=== PATIENT | female | born 1980 | race African-American/Black ===

== ENCOUNTER → 2016-05-04 | Outpatient (CLI) | payer OTHER ==
[~2016-05-04] MED LIST: ALBU1AER INH; ALBU6.7H INH; ALBUAER3 INH; CIPR0.3S LEFT EAR; DUONI NEB; HYDR-2768 PO; HYDR25TA5 PO; LISI-366 PO; LISI40TA PO; LORA24TA PO; OMEP20TA PO; RANI150 PO; SERT-132 PO; TYLE325T PO
[2016-05-04 11:09] LABS: ALKALINE PHOSPHATASE 90 U/L (45-117); HDL CHOLESTEROL 57.1 MG/DL (40.0-60.0); TOTAL BILIRUBIN ADULT 0.3 MG/DL (0.2-1.0)
[2016-05-04 11:11] LABS: ALT (GPT) 25 U/L (10-53); ANION GAP 8 MEQ/L (5-15); AST (GOT) 22 U/L (15-37); BLOOD UREA NITROGEN 11 MG/DL (7-18); CHLORIDE 104 MEQ/L (98-107); GLOMERULAR FILTRATION RATE 115 ML/MIN (>89); GLUCOSE,FASTING 104 MG/DL (74-99); LDL CHOLESTEROL 70 MG/DL (0-99); SODIUM (NA) 141 MEQ/L (136-145)
[2016-05-04 11:15] LABS: POTASSIUM 4.7 MEQ/L (3.5-5.1)
[2016-05-04 14:02] LABS: HEMOGLOBIN A1a 1.3 %; HEMOGLOBIN Ao 83.1 %; HEMOGLOBIN P3 3.8 %
== END ==
LOC: CLAB 10:16
PROVIDERS: ATTEND Family Medicine
DX: Z68.43 Body mass index [BMI] 50.0-59.9, adult (principal)
CPT/HCPCS: 36415; 80053; 80061; 83036

== ENCOUNTER 2016-08-04 22:17 | Emergency (ER) | payer OTHER ==
[~2016-08-04 22:17] MED LIST changes: -ALBUAER3 INH; -HYDR25TA5 PO; -LISI40TA PO; -LORA24TA PO; -SERT-132 PO; -TYLE325T PO
[2016-08-04 22:19] VITALS: BP 168/94; PULSE 88; RESP 16; TEMP 98.7; O2SAT 99
--- NOTE | 2016-08-04 22:54 | PD ---
Physical Exam Time Seen by Provider: 22:53 Narrative 36yo F c/o L sided chest pain, GAGE, and dizziness for 1 week. Reports SOB. Patient seen in triage. VS reviewed. Awaiting bed placement. Data Data Last Documented VS Vital Signs Date Time Temp Pulse Resp B/P Pulse Ox O2 Delivery O2 Flow Rate FiO2 08/04/16 22:19 98.7 88 16 168/94 99 Room Air [facility] Supervised Visit with CIERRA: Clair Sofia Aug 04, 2016 22:54
[2016-08-05] MEDS ORDERED: SERT-132 PO (00:23)
[2016-08-05] MEDS ORDERED: ALBUAER3 INH (00:23)
[2016-08-05] MEDS ORDERED: LORA24TA PO (00:23)
[2016-08-05] MEDS ORDERED: ALBU6.7H INH (00:23)
[2016-08-05] MEDS ORDERED: HYDR25TA5 PO (00:23)
[2016-08-05] MEDS ORDERED: KETOROLAC TROMETHAMINE 30 MG/ML (IVP) VIAL IV PUSH ONE (00:30)
[2016-08-05 00:48] LABS: AUTOMATED NEUTROPHIL # 4.6 TH/MM3 (1.8-7.7); BASOPHIL # 0.1 TH/MM3 (0-0.2); BASOPHIL % 1.5 % (0.0-2.0); EOSINOPHIL # 0.1 TH/MM3 (0-0.4); EOSINOPHIL % 1.2 % (0.0-4.0); HEMATOCRIT 37.8 % (35.0-46.0); HEMO FLAGS DIFF FINAL; LYMPH % 36.8 % (9.0-44.0); LYMPHOCYTE # 3.2 TH/MM3 (1.0-4.8); MEAN CELL VOLUME 82.2 FL (80.0-100.0); MEAN CORPUSCULAR HEMOGLOBIN 27.2 PG (27.0-34.0); MEAN CORPUSCULAR HGB CONC 33.1 % (32.0-36.0); MONO % 6.5 % (0.0-8.0); PLATELET COUNT 429 TH/MM3 (150-450); RED CELL DISTRIBUTION WIDTH 16.2 % (11.6-17.2); WHITE BLOOD COUNT 8.6 TH/MM3 (4.0-11.0)
[2016-08-05 01:00] LABS: APTT (PATIENT) 26.9 SEC (24.3-30.1); PROTHROMBIN TIME - PATIENT 11.2 SEC (9.8-11.6)
--- NOTE | 2016-08-05 01:06 | PD ---
HPI Chief Complaint: Chest Pain Time Seen by Provider: 00:11 Travel History International Travel<30 days: No Contact w/Intl Traveler<30days: No Traveled to known affect area: No History of Present Illness HPI 36yo F with PMH of HTN presents to the ED with c/o headache, chest pain for 1 week. Pt states headache is frontal. Denies any fever, neck pain, focal weakness or numbness, sob, n/v, abdominal pain. Chest pain is left sided, intermittent. Pt states she has been very stressed lately. PFSH Past Medical History Asthma: Yes Blood Disorders: No Heart Rhythm Problems: No Cancer: No Cardiovascular Problems: Yes High Cholesterol: No Chest Pain: Yes Congestive Heart Failure: No COPD: No Diabetes: Yes (CONTROLLED) Patient Takes Glucophage: No Diminished Hearing: No Endocrine: Yes Genitourinary: No Hypertension: Yes Musculoskeletal: No Neurologic: No Psychiatric: No Reproductive: No Respiratory: Yes Migraines: Yes Sleep Apnea: Yes Ulcer: Yes ?: Not LMP: 07/30/16 : 0 Para: 0 Miscarriage: 0 : 0 Past Surgical History Ear Surgery: Yes (JOHNNY EAR TUBES) Gynecologic Surgery: Yes (BREAST REDUCTION) Tympanostomy Tube: Yes Other Surgery: Yes (Breast reduction) Social History Alcohol Use: No Tobacco Use: No Substance Use: No Allergies-Medications (Allergen,Severity, Reaction): Coded Allergies: Cultivated Oat Pollen (Verified Allergy, Unknown, 08/04/16) Dust (Verified Allergy, Unknown, 08/04/16) Reported Meds & Prescriptions Reported Meds & Active Scripts Active Omeprazole 20 Mg Tab 20 Mg PO DAILY Ciprodex Otic Drops (Ciprofloxacin-Dexamethasone Otic Drops) 0.3-0.1% Susp 4 Drop LEFT EAR BID Reported Proair Hfa 8.5 GM Inh (Albuterol Sulfate) 90 Mcg/Act Aer 1 Puff INH Q4H PRN 108 mcg/actuation Proventil Hfa 6.7 GM Inh (Albuterol Sulfate) 90 Mcg/Act Aer 1 Puff INH Q4H PRN Loratadine-D 24 HR (Loratadine-Pseudoephedrine 24 HR) 10-240 Mg Tab 1 Tab PO DAILY Sertraline (Sertraline HCl) 50 Mg Tab 50 Mg PO DAILY Hydrochlorothiazide 25 Mg Tab 25 Mg PO DAILY Review of Systems Except as stated in HPI: all other systems reviewed are Neg Physical Exam Narrative GENERAL: 36yo F not in distress. SKIN: Focused skin assessment warm/dry. HEAD: Atraumatic. Normocephalic. +TTP bilateral frontal sinus. EYES: Pupils equal and round. No scleral icterus. No injection or drainage. ENT: No nasal bleeding or discharge. Mucous membranes pink and moist. NECK: No nuchal rigidity. CARDIOVASCULAR: Regular rate and rhythm. No murmur appreciated. RESPIRATORY: No accessory muscle use. Clear to auscultation. Breath sounds equal bilaterally. GASTROINTESTINAL: Abdomen soft, non-tender, nondistended. No rebound tenderness or guarding. MUSCULOSKELETAL: No obvious deformities. No clubbing. No cyanosis. No edema. NEUROLOGICAL: Awake and alert. No obvious cranial nerve deficits. Motor grossly within normal limits. Normal speech. PSYCHIATRIC: Appropriate mood and affect; insight and judgment normal. Data Data Last Documented VS Vital Signs Date Time Temp Pulse Resp B/P Pulse Ox O2 Delivery O2 Flow Rate FiO2 08/05/16 02:30 84 14 162/89 98 Room Air 08/04/16 22:19 98.7 Orders Electrocardiogram (08/05/16 00:29) Basic Metabolic Panel (Bmp) (08/05/16 00:29) Ckmb (Isoenzyme) Profile (08/05/16 00:29) Complete Blood Count With Diff (08/05/16 00:29) Magnesium (Mg) (08/05/16 00:29) Prothrombin Time / Inr (Pt) (08/05/16 00:29) Act Partial Throm Time (Ptt) (08/05/16 00:29) Troponin I (08/05/16 00:29) Chest, Single Ap (08/05/16 00:29) Ecg Monitoring (08/05/16 00:29) Iv Access Insert/Monitor (08/05/16 00:29) Ketorolac Inj (Toradol Inj) (08/05/16 00:30) CKMB (08/05/16 00:39) CKMB% (08/05/16 00:39) Labs Laboratory Tests Test 08/05/16 00:39 White Blood Count 8.6 TH/MM3 Red Blood Count 4.60 MIL/MM3 Hemoglobin 12.5 GM/DL Hematocrit 37.8 % Mean Corpuscular Volume 82.2 FL Mean Corpuscular Hemoglobin 27.2 PG Mean Corpuscular Hemoglobin 33.1 % Concent Red Cell Distribution Width 16.2 % Platelet Count 429 TH/MM3 Mean Platelet Volume 7.8 FL Neutrophils (%) (Auto) 54.0 % Lymphocytes (%) (Auto) 36.8 % Monocytes (%) (Auto) 6.5 % Eosinophils (%) (Auto) 1.2 % Basophils (%) (Auto) 1.5 % Neutrophils # (Auto) 4.6 TH/MM3 Lymphocytes # (Auto) 3.2 TH/MM3 Monocytes # (Auto) 0.6 TH/MM3 Eosinophils # (Auto) 0.1 TH/MM3 Basophils # (Auto) 0.1 TH/MM3 CBC Comment DIFF FINAL Differential Comment Prothrombin Time 11.2 SEC Prothromb Time International 1.0 RATIO Ratio Activated Partial 26.9 SEC Thromboplast Time Sodium Level 141 MEQ/L Potassium Level 3.8 MEQ/L Chloride Level 103 MEQ/L Carbon Dioxide Level 28.0 MEQ/L Anion Gap 10 MEQ/L Blood Urea Nitrogen 11 MG/DL Creatinine 0.75 MG/DL Estimat Glomerular Filtration 107 ML/MIN Rate Random Glucose 89 MG/DL Calcium Level 8.3 MG/DL Magnesium Level 2.6 MG/DL Total Creatine Kinase 138 U/L Creatine Kinase MB LESS THAN 0.5 NG/ML Troponin I LESS THAN 0.02 NG/ML MDM Medical Decision Making Medical Screen Exam Complete: Yes Emergency Medical Condition: Yes Interpretation(s) EKG: NSR 73bpm. TWI aVF. Laboratory Tests Test 08/05/16 00:39 White Blood Count 8.6 TH/MM3 (4.0-11.0) Red Blood Count 4.60 MIL/MM3 (4.00-5.30) Hemoglobin 12.5 GM/DL (11.6-15.3) Hematocrit 37.8 % (35.0-46.0) Mean Corpuscular Volume 82.2 FL (80.0-100.0) Mean Corpuscular Hemoglobin 27.2 PG (27.0-34.0) Mean Corpuscular Hemoglobin 33.1 % Concent (32.0-36.0) Red Cell Distribution Width 16.2 % (11.6-17.2) Platelet Count 429 TH/MM3 (150-450) Mean Platelet Volume 7.8 FL (7.0-11.0) Neutrophils (%) (Auto) 54.0 % (16.0-70.0) Lymphocytes (%) (Auto) 36.8 % (9.0-44.0) Monocytes (%) (Auto) 6.5 % (0.0-8.0) Eosinophils (%) (Auto) 1.2 % (0.0-4.0) Basophils (%) (Auto) 1.5 % (0.0-2.0) Neutrophils # (Auto) 4.6 TH/MM3 (1.8-7.7) Lymphocytes # (Auto) 3.2 TH/MM3 (1.0-4.8) Monocytes # (Auto) 0.6 TH/MM3 (0-0.9) Eosinophils # (Auto) 0.1 TH/MM3 (0-0.4) Basophils # (Auto) 0.1 TH/MM3 (0-0.2) CBC Comment DIFF FINAL Differential Comment Prothrombin Time 11.2 SEC (9.8-11.6) Prothromb Time International 1.0 RATIO Ratio Activated Partial 26.9 SEC Thromboplast Time (24.3-30.1) Sodium Level 141 MEQ/L (136-145) Potassium Level 3.8 MEQ/L (3.5-5.1) Chloride Level 103 MEQ/L (98-107) Carbon Dioxide Level 28.0 MEQ/L (21.0-32.0) Anion Gap 10 MEQ/L (5-15) Blood Urea Nitrogen 11 MG/DL (7-18) Creatinine 0.75 MG/DL (0.50-1.00) Estimat Glomerular Filtration 107 ML/MIN Rate (>89) Random Glucose 89 MG/DL (74-106) Calcium Level 8.3 MG/DL (8.5-10.1) Magnesium Level 2.6 MG/DL (1.5-2.5) Total Creatine Kinase 138 U/L (26-192) Creatine Kinase MB LESS THAN 0.5 NG/ML (0.5-3.6) Troponin I LESS THAN 0.02 NG/ML (0.02-0.05) Last Impressions Chest X-Ray 08/05/16 0029 Signed Impressions: Service Date/Time: July 01:02 - CONCLUSION: Normal examination. Hugh Duong MD Differential Diagnosis Anxiety vs. atypical chest pain vs. sinus headache vs. migraine headache Narrative Course 36yo F with atypical chest pain and sinus headache. No red flags. No neurologic deficits on exam. Pt is very comfortable appearing, smiling and not in distress. Labs reviewed, no leukocytosis. Troponin negative. CXR negative. Pt given toradol 30mg IV and reevaluated at bedside. States headache and chest pain has resolved. Do not think chest pain is cardiac. Return precautions given. Diagnosis Primary Impression: Atypical chest pain Patient Instructions: General Instructions Departure Forms: Tests/Procedures Additional Instructions: Please follow up with your PMD in 1-2 days. Return to the ED if symptoms worsen. Med/Other Pt SpecificInfo: Prescription(s) given Scripts Acetaminophen (Tylenol)325 Mg [id number] Mg PO Q6H PRN (PAIN SCALE 1 TO 4) #20 TAB Ref 0 Prov:Kusum Tsai DO 08/05/16 Disposition: 01 DISCHARGE HOME Condition: Stable Kusum Tsai DO Aug 05, 2016 01:06
[2016-08-05 01:11] LABS: ANION GAP 10 MEQ/L (5-15); BLOOD UREA NITROGEN 11 MG/DL (7-18); CHLORIDE 103 MEQ/L (98-107); GLOMERULAR FILTRATION RATE 107 ML/MIN (>89); MAGNESIUM 2.6 MG/DL (1.5-2.5); POTASSIUM 3.8 MEQ/L (3.5-5.1); SODIUM (NA) 141 MEQ/L (136-145)
[2016-08-05 01:15] LABS: CREATINE KINASE 138 U/L (26-192)
[2016-08-05 01:27] LABS: CKMB LESS THAN 0.5 NG/ML (0.5-3.6)
--- NOTE | 2016-08-05 01:48 | RADRPT ---
EXAM DATE/TIME: 08/05/2016 01:02 [facility] COMPARISON: CHEST SINGLE AP, December 05, 2015, 20:16. INDICATIONS : Shortness of breath. MEDICAL HISTORY : Diabetes mellitus type II. Asthma SURGICAL HISTORY : None. ENCOUNTER: Initial ACUITY: 1 day PAIN SCORE: 0/10 LOCATION: Bilateral chest FINDINGS: A single view of the chest demonstrates the lungs to be symmetrically aerated without evidence of mas s, infiltrate or effusion. The cardiomediastinal contours are unremarkable. Osseous structures are intact. CONCLUSION: Normal examination. Hugh Duong MD on August 05, 2016 at 1:47 Board Certified Radiologist. This report was verified electronically.
[2016-08-05 02:30] VITALS: BP 162/89; PULSE 84; RESP 14; O2SAT 98
[2016-08-05] MEDS ORDERED: TYLE325T PO (02:45)
--- NOTE | 2016-08-05 13:57 | EKG ---
Date Performed: 08/05/2016 Time Performed: 00:54:13 PTAGE: 36 years EKG: Sinus rhythm INDETERMINATE AXIS POSSIBLE RIGHT VENTRICULAR CONDUCTION DELAY NONSPECIFIC ST ELEVATION BORDERLINE E CG PREVIOUS TRACING : 12/05/2015 20.00 Since previous tracing, no significant change noted DOCTOR: Rashaad Hook Interpretating Date/Time 08/05/2016 13:55:47
[2016-08-16] MEDS ORDERED: SERT-132 PO (13:23)
[2016-08-16] MEDS ORDERED: HYDR25TA5 PO (13:23)
[2016-08-16] MEDS ORDERED: LORA24TA PO (13:23)
[2016-08-26] MEDS ORDERED: LISI40TA PO (10:22)
== END 2016-08-05 03:05 | disposition home or self-care (01) ==
LOC: NEPC 22:17
DX: R07.89 Other chest pain (principal); R51 Headache; I10 Essential (primary) hypertension; J45.909 Unspecified asthma, uncomplicated; E11.9 Type 2 diabetes mellitus without complications; R94.31 Abnormal electrocardiogram [ECG] [EKG]
CPT/HCPCS: 71010; 80048; 82550; 82552; 83735; 84484; 85025; 85610; 85730; 93005; 96374; 99285; J1885

== ENCOUNTER 2016-09-06 14:19 | Emergency (ER) | payer OTHER ==
[~2016-09-06] VITALS: Ht 154.9 cm; Wt 97.0 kg
[~2016-09-06 14:19] MED LIST changes: -ALBU1AER INH; +ALBUAER3 INH; -DUONI NEB; -HYDR-2768 PO; +HYDR25TA5 PO; -LISI-366 PO; +LISI40TA PO; +LORA24TA PO; -RANI150 PO; +SERT-132 PO; +TYLE325T PO
[2016-09-06 14:22] VITALS: BP 179/95; PULSE 82; RESP 20; TEMP 98.1; O2SAT 100
--- NOTE | 2016-09-06 14:32 | PD ---
Physical Exam Time Seen by Provider: 14:31 Narrative 36 y/o female here with R foot pain after a bed fell on her foot on 07/28. Pain persists. Vital signs reviewed. Seen at triage desk. Awaiting bed placement. Data Data Last Documented VS Vital Signs Date Time Temp Pulse Resp B/P Pulse Ox O2 Delivery O2 Flow Rate FiO2 09/06/16 14:22 98.1 82 20 179/95 100 Room Air [facility] Medical Record Reviewed: Yes Supervised Visit with CIERRA: Richar Cintron Sep 06, 2016 14:31
--- NOTE | 2016-09-06 15:01 | RADRPT ---
EXAM DATE/TIME: 09/06/2016 14:52 [facility] COMPARISON: No previous studies available for comparison. INDICATIONS : Right foot pain. Patients roommate dropped a piece of furniture on top of foot one week ago. MEDICAL HISTORY : None. SURGICAL HISTORY : None. ENCOUNTER: Initial ACUITY: 1 week PAIN SCORE: 9/10 LOCATION: Right foot. FINDINGS: No definite fractures, or dislocations are identified. No definite lytic or sclerotic lesion is seen . CONCLUSION: No definite fracture is seen for technique. K. Vaibhav Enrique MD on September 06, 2016 at 14:57 Board Certified Radiologist. This report was verified electronically.
--- NOTE | 2016-09-06 17:07 | PD ---
HPI Chief Complaint: Injury Time Seen by Provider: 16:40 Travel History International Travel<30 days: No Contact w/Intl Traveler<30days: No Traveled to known affect area: No History of Present Illness HPI 36-year-old female presents emergency department for evaluation of right foot pain. Patient reports while moving 2 days ago a large metal bed fell onto her right foot. She has had pain and difficulty weightbearing since the injury. Patient denies numbness or tingling in the extremity. No other injury. No alleviating factors. PFSH Past Medical History Asthma: Yes Blood Disorders: No Heart Rhythm Problems: No Cancer: No Cardiovascular Problems: Yes (htn) High Cholesterol: No Chest Pain: Yes Congestive Heart Failure: No COPD: No Diabetes: Yes (CONTROLLED) Patient Takes Glucophage: No Diminished Hearing: No Endocrine: Yes Genitourinary: No Hypertension: Yes Musculoskeletal: No Neurologic: No Psychiatric: No Reproductive: No Respiratory: Yes (asthma) Immunizations Current: Yes Migraines: Yes Sleep Apnea: Yes Ulcer: Yes ?: Not LMP: 08/28/16 : 0 Para: 0 Miscarriage: 0 : 0 Past Surgical History Ear Surgery: Yes (JOHNNY EAR TUBES) Gynecologic Surgery: Yes (BREAST REDUCTION) Thoracic Surgery: Yes (BREAST REDUCTION) Tympanostomy Tube: Yes Other Surgery: Yes (Breast reduction) Social History Alcohol Use: No Tobacco Use: No Substance Use: No Allergies-Medications (Allergen,Severity, Reaction): Coded Allergies: Cultivated Oat Pollen (Verified Allergy, Unknown, 09/06/16) Dust (Verified Allergy, Unknown, 09/06/16) Reported Meds & Prescriptions Reported Meds & Active Scripts Active Lisinopril 40 Mg Tab 40 Mg PO DAILY Loratadine-D 24 HR (Loratadine-Pseudoephedrine 24 HR) 10-240 Mg Tab 1 Tab PO DAILY Sertraline (Sertraline HCl) 50 Mg Tab 50 Mg PO DAILY Hydrochlorothiazide 25 Mg Tab 25 Mg PO DAILY Tylenol (Acetaminophen) 325 Mg Tab 650 Mg PO Q6H PRN Omeprazole 20 Mg Tab 20 Mg PO DAILY Ciprodex Otic Drops (Ciprofloxacin-Dexamethasone Otic Drops) 0.3-0.1% Susp 4 Drop LEFT EAR BID Reported Proair Hfa 8.5 GM Inh (Albuterol Sulfate) 90 Mcg/Act Aer 1 Puff INH Q4H PRN 108 mcg/actuation Proventil Hfa 6.7 GM Inh (Albuterol Sulfate) 90 Mcg/Act Aer 1 Puff INH Q4H PRN Review of Systems Except as stated in HPI: all other systems reviewed are Neg Physical Exam Narrative GENERAL: Well-nourished, well-developed patient. SKIN: Focused skin assessment warm/dry. HEAD: Normocephalic. EYES: No scleral icterus. No injection or drainage. NECK: Supple, trachea midline. No JVD or lymphadenopathy. CARDIOVASCULAR: Regular rate and rhythm without murmurs, gallops, or rubs. RESPIRATORY: Breath sounds equal bilaterally. No accessory muscle use. GASTROINTESTINAL: Abdomen soft, non-tender, nondistended. MUSCULOSKELETAL: No cyanosis, or edema. Right foot: Mild tenderness over the dorsal aspect. 2+ distal pulses Data Data Last Documented VS Vital Signs Date Time Temp Pulse Resp B/P Pulse Ox O2 Delivery O2 Flow Rate FiO2 09/06/16 14:22 98.1 82 20 179/95 100 Room Air Orders Foot, Complete ([id number]) (09/06/16 ) [facility] Medical Decision Making Medical Screen Exam Complete: Yes Emergency Medical Condition: Yes Differential Diagnosis Contusion versus fracture versus strain Narrative Course 36-year-old female presents with chief complaint of right foot pain status post metal bed falling onto the foot. X-ray was negative for fracture. The films exam is benign. Patient be treated for contusion. Diagnosis Primary Impression: Contusion of right foot Qualified Code: S90.31XA - Contusion of right foot, initial encounter Referrals: Primary Care Physician Departure Forms: Tests/Procedures, Work Release Enter return to work date: Sep 08, 2016 Additional Instructions: Ice and elevate the extremity. Take [id number] Motrin 600 mg every 6 hours as needed for pain. Follow-up the primary care doctor. Disposition: 01 DISCHARGE HOME Condition: Stable Ml Ely Sep 06, 2016 17:07
== END 2016-09-06 17:38 | disposition home or self-care (01) ==
LOC: NEPK 14:19
DX: S90.31XA Contusion of right foot, initial encounter (principal); E11.9 Type 2 diabetes mellitus without complications; I10 Essential (primary) hypertension; G47.30 Sleep apnea, unspecified; Z87.09 Personal history of other diseases of the respiratory system; Z86.79 Personal history of other diseases of the circulatory system; Z86.69 Personal history of other diseases of the nervous system and sense organs; Z87.19 Personal history of other diseases of the digestive system; W20.8XXA Other cause of strike by thrown, projected or falling object, initial encounter
CPT/HCPCS: 73630; 99283

== ENCOUNTER 2017-07-03 21:09 | Inpatient (IN) | payer OTHER ==
[2017-07-03] VITALS (8 sets, daily range): BP systolic 123–224; BP diastolic 71–112; PULSE 91–108; RESP 20; TEMP 98.9; O2SAT 98–99
[~2017-07-03] VITALS: Ht 167.6 cm; Wt 154.8 kg
[~2017-07-03 21:09] MED LIST changes: +FLUT1SPR5 EACH NARE; -OMEP20TA PO; +OMEP20TA93 PO; -TYLE325T PO
--- NOTE | 2017-07-03 22:12 | PD ---
HPI Chief Complaint: OD/ Ingestion Time Seen by Provider: 21:51 Travel History International Travel<30 days: No Contact w/Intl Traveler<30days: No Traveled to known affect area: No History of Present Illness HPI The patient is a 36-year-old female that states that approximately 3 PM today she took all 15 tablets from a bottle that contained 25 mg sertraline. She states she had a bad day at work and was not suicidal. She has slight nausea without vomiting. Despite having asthma she denies any wheezing. She has a slight dry mouth and denies any headache. She does feel dizzy which is nonvertiginous and just a feeling of lightheadedness. She denies any chest pain or palpitations. She states she does have unsteadiness in her gait. The patient states she does have a history of hypertension but is taking her blood pressure medications correctly. PFSH Past Medical History Anemia: Yes Asthma: Yes Blood Disorders: No Depression: Yes Heart Rhythm Problems: No Cancer: No Cardiovascular Problems: Yes (htn) High Cholesterol: No Chest Pain: Yes Congestive Heart Failure: No COPD: No Diabetes: Yes (CONTROLLED) Patient Takes Glucophage: No Diminished Hearing: No Endocrine: Yes Gastrointestinal Disorders: Yes (GERD) Genitourinary: No Hypertension: Yes Musculoskeletal: No Neurologic: No Psychiatric: No Reproductive: No Respiratory: Yes (asthma) Immunizations Current: Yes Migraines: Yes Sleep Apnea: Yes Ulcer: Yes Tetanus Vaccination: > 5 Years Influenza Vaccination: Yes ?: Unknown LMP: May : 0 Para: 0 Miscarriage: 0 : 0 Past Surgical History Ear Surgery: Yes (JOHNNY EAR TUBES) Gynecologic Surgery: Yes (BREAST REDUCTION) Thoracic Surgery: Yes (BREAST REDUCTION) Tympanostomy Tube: Yes Other Surgery: Yes (Breast reduction) Social History Alcohol Use: No Tobacco Use: No Substance Use: No Allergies-Medications (Allergen,Severity, Reaction): Coded Allergies: grass pollen (Unverified Allergy, Unknown, 07/03/17) house dust (Unverified Allergy, Unknown, 07/03/17) Reported Meds & Prescriptions Reported Meds & Active Scripts Active Ciprodex Otic Drops (Ciprofloxacin-Dexamethasone Otic Drops) 0.3-0.1% Susp 4 Drop LEFT EAR BID Flonase Nasal Baldwin (Fluticasone Nasal Baldwin) 50 Mcg/Act Baldwin 50 Mcg EACH NARE BID Lisinopril 40 Mg Tab 40 Mg PO DAILY Loratadine-D 24 HR (Loratadine-Pseudoephedrine 24 HR) 10-240 Mg Tab 1 Tab PO DAILY Sertraline (Sertraline HCl) 50 Mg Tab 50 Mg PO DAILY Hydrochlorothiazide 25 Mg Tab 25 Mg PO DAILY Omeprazole 20 Mg Tab 20 Mg PO DAILY Reported Proair Hfa 8.5 GM Inh (Albuterol Sulfate) 90 Mcg/Act Aer 1 Puff INH Q4H PRN 108 mcg/actuation Proventil Hfa 6.7 GM Inh (Albuterol Sulfate) 90 Mcg/Act Aer 1 Puff INH Q4H PRN Review of Systems Except as stated in HPI: all other systems reviewed are Neg Physical Exam Narrative GENERAL: The patient is alert, cooperative, oriented 3 in no apparent distress. She is morbidly obese. The pulse is 108 and blood pressure 182/109 the rest of the vital signs are normal. SKIN: Focused skin assessment warm/dry. HEAD: Atraumatic. Normocephalic. EYES: Pupils equal and round. No scleral icterus. No injection or drainage. ENT: No nasal bleeding or discharge. Mucous membranes pink and moist. NECK: Trachea midline. No JVD. CARDIOVASCULAR: Regular rate and rhythm. No murmur appreciated. RESPIRATORY: No accessory muscle use. Clear to auscultation. Breath sounds equal bilaterally. GASTROINTESTINAL: Abdomen soft, non-tender, nondistended. Hepatic and splenic margins not palpable. MUSCULOSKELETAL: No obvious deformities. No clubbing. No cyanosis. No edema. NEUROLOGICAL: Awake and alert. No obvious cranial nerve deficits. Motor grossly within normal limits. Normal speech. PSYCHIATRIC: Appropriate mood and affect; insight and judgment normal. Data Data Last Documented VS Vital Signs Date Time Temp Pulse Resp B/P (MAP) Pulse Ox O2 Delivery O2 Flow Rate FiO2 07/03/17 23:08 91 20 224/111 (148) 98 07/03/17 21:35 Room Air 07/03/17 21:11 98.9 Orders Orders Electrocardiogram (07/03/17 21:51) Complete Blood Count With Diff (07/03/17 21:51) Comprehensive Metabolic Panel (07/03/17 21:51) Urinalysis - C+S If Indicated (07/03/17 21:51) Beta Hcg (Quant/Titer) (07/03/17 21:51) Drug Screen, Random Urine (07/03/17 21:51) Alcohol (Ethanol) (07/03/17 21:51) Salicylates (Aspirin) (07/03/17 21:51) Tylenol (Acetaminophen) (07/03/17 21:51) Lorazepam Inj (Ativan Inj) (07/03/17 23:30) Admit Order (Ed Use Only) (07/03/17 23:25) Labs Laboratory Tests Test 07/03/17 21:35 White Blood Count 8.8 TH/MM3 Red Blood Count 4.81 MIL/MM3 Hemoglobin 13.2 GM/DL Hematocrit 40.6 % Mean Corpuscular Volume 84.5 FL Mean Corpuscular Hemoglobin 27.5 PG Mean Corpuscular Hemoglobin Concent 32.6 % Red Cell Distribution Width 14.7 % Platelet Count 490 TH/MM3 Mean Platelet Volume 8.5 FL Neutrophils (%) (Auto) 60.3 % Lymphocytes (%) (Auto) 31.8 % Monocytes (%) (Auto) 4.9 % Eosinophils (%) (Auto) 0.8 % Basophils (%) (Auto) 2.2 % Neutrophils # (Auto) 5.3 TH/MM3 Lymphocytes # (Auto) 2.8 TH/MM3 Monocytes # (Auto) 0.4 TH/MM3 Eosinophils # (Auto) 0.1 TH/MM3 Basophils # (Auto) 0.2 TH/MM3 CBC Comment DIFF FINAL Differential Comment Blood Urea Nitrogen 8 MG/DL Creatinine 0.86 MG/DL Random Glucose 148 MG/DL Total Protein 8.4 GM/DL Albumin 3.4 GM/DL Calcium Level 8.5 MG/DL Alkaline Phosphatase 102 U/L Aspartate Amino Transf (AST/SGOT) 13 U/L Alanine Aminotransferase (ALT/SGPT) 22 U/L Total Bilirubin 0.2 MG/DL Sodium Level 136 MEQ/L Potassium Level 3.5 MEQ/L Chloride Level 103 MEQ/L Carbon Dioxide Level 25.9 MEQ/L Anion Gap 7 MEQ/L Estimat Glomerular Filtration Rate 91 ML/MIN Human Chorionic Gonadotropin, Quant LESS THAN 1 MIU/ML Ethyl Alcohol Level LESS THAN 3 MG/DL MDM Medical Decision Making Medical Screen Exam Complete: Yes Emergency Medical Condition: Yes Medical Record Reviewed: Yes Interpretation(s) The EKG shows sinus rhythm with a rate of [address] elevation or depression. Differential Diagnosis Suicidal gesture, suicidal depression, serotonin syndrome Narrative Course The patient has a sertraline overdose. Her blood pressure has continually been on the rise. It is 11:27 PM and her blood pressures 202/91. This may represent sertraline overdose or, more likely, represents her history of hypertension. She did have other indications of sertraline overdose such as dizziness, gait disturbance, dry mouth, nausea. The patient will be admitted for 23 hour observation monitor blood pressure. She will get Ativan 1 mg IV to see if this lowers her blood pressure. Diagnosis Primary Impression: Selective serotonin re-uptake inhibitor overdose Additional Impression: Hypertension Admitting Information Admitting Physician Requests: Observation Salvador Delacruz MD July 03, 2017 22:12
[2017-07-03 22:15] LABS: AUTOMATED NEUTROPHIL # 5.3 TH/MM3 (1.8-7.7); BASOPHIL # 0.2 TH/MM3 (0-0.2); BASOPHIL % 2.2 % (0.0-2.0); EOSINOPHIL # 0.1 TH/MM3 (0-0.4); EOSINOPHIL % 0.8 % (0.0-4.0); HEMATOCRIT 40.6 % (35.0-46.0); HEMOGLOBIN 13.2 GM/DL (11.6-15.3); LYMPH % 31.8 % (9.0-44.0); LYMPHOCYTE # 2.8 TH/MM3 (1.0-4.8); MEAN CELL VOLUME 84.5 FL (80.0-100.0); MEAN CORPUSCULAR HEMOGLOBIN 27.5 PG (27.0-34.0); MEAN CORPUSCULAR HGB CONC 32.6 % (32.0-36.0); MEAN PLATELET VOLUME 8.5 FL (7.0-11.0); MONO % 4.9 % (0.0-8.0); MONOCYTE # 0.4 TH/MM3 (0-0.9); NEUT % 60.3 % (16.0-70.0); PLATELET COUNT 490 TH/MM3 (150-450); RED BLOOD COUNT 4.81 MIL/MM3 (4.00-5.30); RED CELL DISTRIBUTION WIDTH 14.7 % (11.6-17.2); WHITE BLOOD COUNT 8.8 TH/MM3 (4.0-11.0)
[2017-07-03 22:22] LABS: CHLORIDE 103 MEQ/L (98-107); SODIUM (NA) 136 MEQ/L (136-145)
[2017-07-03 22:26] LABS: ALBUMIN 3.4 GM/DL (3.4-5.0); BICARBONATE 25.9 MEQ/L (21.0-32.0); CALCIUM 8.5 MG/DL (8.5-10.1); GLUCOSE,RANDOM 148 MG/DL (74-106)
[2017-07-03 22:27] LABS: BLOOD UREA NITROGEN 8 MG/DL (7-18)
[2017-07-03 22:29] LABS: ALT (GPT) 22 U/L (10-53); AST (GOT) 13 U/L (15-37)
[2017-07-03 22:30] LABS: CREATININE 0.86 MG/DL (0.50-1.00); GLOMERULAR FILTRATION RATE 91 ML/MIN (>89)
[2017-07-03 22:31] LABS: TOTAL BILIRUBIN ADULT 0.2 MG/DL (0.2-1.0); TOTAL PROTEIN 8.4 GM/DL (6.4-8.2)
[2017-07-03 22:32] LABS: ALKALINE PHOSPHATASE 102 U/L (45-117)
[2017-07-03] MEDS ORDERED: LORazepam 2 MG/ML VIAL IV PUSH ONE (23:30)
[2017-07-03 23:50] LABS: ACETAMINOPHEN LESS THAN 2.0 MCG/ML (10.0-30.0)
[2017-07-04] VITALS (11 sets, daily range): BP systolic 110–224; BP diastolic 53–107; PULSE 90–115; RESP 15–20; TEMP 97.6–98.7; O2SAT 91–98
[2017-07-04] MEDS ORDERED: hydrALAZINE HCL 20 MG/ML VIAL IV PUSH ONE ×2 (00:30)
[2017-07-04 01:12] LABS: BILIRUBIN, URINE NEG (NEG); BLOOD, URINE NEG (NEG); GLUCOSE,URINE NEG (NEG); KETONE, URINE NEG (NEG); NITRITE,URINE NEG (NEG); URINE COLOR YELLOW (YELLW/STRAW); URINE LEUKOCYTE ESTERASE NEG (NEG)
[2017-07-04 01:23] LABS: RBC, URINE 0-2 /hpf (0-3); WBC, URINE 0-2 /hpf (0-5)
[2017-07-04 01:24] LABS: BACTERIA, URINE FEW /hpf
[2017-07-04] MEDS ORDERED: ACETAMINOPHEN 500 MG CPLT PO PRN (09:00)
--- NOTE | 2017-07-04 10:43 | EKG ---
Date Performed: 07/03/2017 Time Performed: 22:02:58 PTAGE: 36 years EKG: Sinus rhythm LEFT ATRIAL ENLARGEMENT POSSIBLE RIGHT VENTRICULAR HYPERTROPHY POSSIBLE ANTERIOR MYOCARDIAL INFARCTI ON ABNORMAL ECG Since the PREVIOUS TRACING , no significant change noted PREVIOUS TRACIN08/05/2016 00.54 DOCTOR: Dago Smith Interpretating Date/Time 07/04/2017 10:41:13
--- NOTE | 2017-07-04 10:49 | HHI.HP ---
[facility] Unknown Admission Diagnosis Sertraline overdose, hypertension Diagnoses: Travel History International Travel<30 Days: No Contact w/Intl Traveler <30 Da: No Traveled to Known Affected Are: No History of Present Illness Mrs. Chandler is a 36-year-old female. She was admitted after coming into the hospital with a dry mouth, nausea, and some vomiting. She reported that she took her leftover sertraline pills, although remain in the bottle. There is approximately 15 pills of 25 mg sertraline remaining in the bottle that she consumed. The reasoning for consuming this is related to a stressful day at work. 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 Once seen her nausea is improved. She has mild abdominal pain. She has not had any twitching , cramps, palpitations, or diarrhea. Review of Systems Constitutional: DENIES: Fever, Chills, Night Sweats Respiratory: DENIES: Cough, Wheezing, Shortness of breath Cardiovascular: DENIES: Chest pain, Palpitations, Syncope Gastrointestinal: COMPLAINS OF: Abdominal pain, Nausea, Vomiting, DENIES: Black stools, Bloody stools, Diarrhea Except as stated in HPI: all other systems reviewed are Neg Past Family Social History Past Medical History Diabetes mellitus type 2 Hypertension Asthma CPAP dependent obstructive sleep apnea Mild cognitive deficit Past Surgical History Breast reduction surgery Bilateral ear tubes as a child Reported Medications Reported Meds & Active Scripts Active Ciprodex Otic Drops (Ciprofloxacin-Dexamethasone Otic Drops) 0.3-0.1% Susp 4 Drop LEFT EAR BID Flonase Nasal [place] (Fluticasone Nasal [place]) 50 Mcg/Act [place] 50 Mcg EACH NARE BID Lisinopril 40 Mg Tab 40 Mg PO DAILY Loratadine-D 24 HR (Loratadine-Pseudoephedrine 24 HR) 10-240 Mg Tab 1 Tab PO DAILY Sertraline (Sertraline HCl) 50 Mg Tab 50 Mg PO DAILY Hydrochlorothiazide 25 Mg Tab 25 Mg PO DAILY Omeprazole 20 Mg Tab 20 Mg PO DAILY Reported Proair Hfa 8.5 GM Inh (Albuterol Sulfate) 90 Mcg/Act Aer 1 Puff INH Q4H PRN 108 mcg/actuation Proventil Hfa 6.7 GM Inh (Albuterol Sulfate) 90 Mcg/Act Aer 1 Puff INH Q4H PRN Allergies: Coded Allergies: grass pollen (Unverified Allergy, Unknown, 07/03/17) house dust (Unverified Allergy, Unknown, 07/03/17) Active Ordered Medications Administered Medications Medications (Trade) Dose Ordered Sig/Jagdish Route PRN Reason Start Time Stop Time Status Last Admin Dose Admin Acetaminophen (Tylenol) 500 mg Q6H PRN PO HEADACHE 07/04/17 09:00 07/04/17 09:42 Family History Liver cancer and hypertension in mother Diabetes mellitus type 2 and brother Lung cancer in aunt Social History No smoking No illicit drug abuse No alcohol abuse Physical Exam Vital Signs Vital Signs Date Time Temp Pulse Resp B/P (MAP) Pulse Ox O2 Delivery O2 Flow Rate FiO2 07/04/17 10:29 100 07/04/17 08:00 98.7 113 19 135/71 (92) 95 07/04/17 04:00 97 118/57 (77) 07/04/17 00:55 101 20 146/68 (94) 98 07/04/17 00:39 115 20 174/84 (114) 98 07/04/17 00:30 98.6 99 20 110/53 (72) 97 07/04/17 00:10 100 20 224/107 (146) 97 07/03/17 23:40 92 20 198/108 (138) 99 07/03/17 23:08 91 20 224/111 (148) 98 07/03/17 23:02 94 20 123/71 (88) 95 07/03/17 22:56 95 20 211/112 (145) 99 07/03/17 22:24 96 20 174/95 (121) 99 07/03/17 21:52 98 20 148/83 (104) 98 07/03/17 21:49 100 18 98 07/03/17 21:35 104 20 148/83 (104) 98 Room Air 07/03/17 21:11 98.9 108 20 182/109 (133) 99 Physical Exam GENERAL: NAD, A&Ox3 HEAD: Normocephalic. NECK: Supple, trachea midline. No lymphadenopathy. EYES: No scleral icterus. No injection or drainage. CARDIOVASCULAR: Regular rate and rhythm without murmurs, gallops, or rubs. RESPIRATORY: Breath sounds equal bilaterally. No accessory muscle use. GASTROINTESTINAL: Abdomen soft, non-tender, nondistended. MUSCULOSKELETAL: No cyanosis, or edema. SKIN: Warm and dry. NEURO: No focal neurological deficitis. Laboratory Laboratory Tests Test 07/03/17 21:35 07/04/17 01:00 White Blood Count 8.8 Red Blood Count 4.81 Hemoglobin 13.2 Hematocrit 40.6 Mean Corpuscular Volume 84.5 Mean Corpuscular Hemoglobin 27.5 Mean Corpuscular Hemoglobin Concent 32.6 Red Cell Distribution Width 14.7 Platelet Count 490 Mean Platelet Volume 8.5 Neutrophils (%) (Auto) 60.3 Lymphocytes (%) (Auto) 31.8 Monocytes (%) (Auto) 4.9 Eosinophils (%) (Auto) 0.8 Basophils (%) (Auto) 2.2 Neutrophils # (Auto) 5.3 Lymphocytes # (Auto) 2.8 Monocytes # (Auto) 0.4 Eosinophils # (Auto) 0.1 Basophils # (Auto) 0.2 CBC Comment DIFF FINAL Differential Comment Blood Urea Nitrogen 8 Creatinine 0.86 Random Glucose 148 Total Protein 8.4 Albumin 3.4 Calcium Level 8.5 Alkaline Phosphatase 102 Aspartate Amino Transf (AST/SGOT) 13 Alanine Aminotransferase (ALT/SGPT) 22 Total Bilirubin 0.2 Sodium Level 136 Potassium Level 3.5 Chloride Level 103 Carbon Dioxide Level 25.9 Anion Gap 7 Estimat Glomerular Filtration Rate 91 Human Chorionic Gonadotropin, Quant LESS THAN 1 Salicylates Level LESS THAN 1.7 Acetaminophen Level LESS THAN 2.0 Ethyl Alcohol Level LESS THAN 3 Urine Color YELLOW Urine Turbidity CLEAR Urine pH 6.0 Urine Specific [place] 1.020 Urine Protein NEG Urine Glucose (UA) NEG Urine Ketones NEG Urine Occult Blood NEG Urine Nitrite NEG Urine Bilirubin NEG Urine Urobilinogen 0.2 Urine Leukocyte Esterase NEG Urine RBC 0-2 Urine WBC 0-2 Urine Squamous Epithelial Cells 6-8 Urine Bacteria FEW Microscopic Urinalysis Comment CULT NOT INDICATED Urine Opiates Screen NEG Urine Barbiturates Screen NEG Urine Amphetamines Screen NEG Urine Benzodiazepines Screen NEG Urine Cocaine Screen NEG Urine Cannabinoids Screen NEG Result Diagram: 07/03/[id number] Caprini VTE Risk Assessment Caprini VTE Risk Assessment: No/Low Risk (score <= 1) Caprini Risk Assessment Model Point Value = 1 Point Value = 2 Point Value = 3 Point Value = 5 Age 41-60 Minor surgery BMI > 25 kg/m2 Swollen legs Varicose veins or History of unexplained or recurrent spontaneous Oral contraceptives or hormone replacement Sepsis (< 1 month) Serious lung disease, including pneumonia (< 1 month) Abnormal pulmonary function Acute myocardial infarction Congestive heart failure (< 1 month) History of inflammatory bowel disease Medical patient at bed rest Age 61-74 Arthroscopic surgery Major open surgery (> 45 min) Laparoscopic surgery (> 45 min) Malignancy Confined to bed (> 72 hours) Immobilizing plaster cast Central venous access Age >= 75 History of VTE Family history of VTE Factor V Leiden Prothrombin [id number] Lupus anticoagulant Anticardiolipin antibodies Elevated serum homocysteine Heparin-induced thrombocytopenia Other congenital or acquired thrombophilia Stroke (< 1 month) Elective arthroplasty Hip, pelvis, or leg fracture Acute spinal cord injury (< 1 month) Prophylaxis Regimen Total Risk Factor Score Risk Level Prophylaxis Regimen 0-1 Low Early ambulation 2 Moderate Order ONE of the following: *Sequential Compression Device (SCD) *Heparin 5000 units SQ BID 3-4 Higher Order ONE of the following medications: *Heparin 5000 units SQ TID *Enoxaparin/Lovenox 40 mg SQ daily (WT < 150 kg, CrCl > 30 mL/min) *Enoxaparin/Lovenox 30 mg SQ daily (WT < 150 kg, CrCl > 10-29 mL/min) *Enoxaparin/Lovenox 30 mg SQ BID (WT < 150 kg, CrCl > 30 mL/min) AND/OR *Sequential Compression Device (SCD) 5 or more Highest Order ONE of the following medications: *Heparin 5000 units SQ TID (Preferred with Epidurals) *Enoxaparin/Lovenox 40 mg SQ daily (WT < 150 kg, CrCl > 30 mL/min) *Enoxaparin/Lovenox 30 mg SQ daily (WT < 150 kg, CrCl > 10-29 mL/min) *Enoxaparin/Lovenox 30 mg SQ BID (WT < 150 kg, CrCl > 30 mL/min) AND *Sequential Compression Device (SCD) Assessment and Plan Problem List: (1) Overdose of antidepressant ICD Code: T43.201A - Poisoning by unspecified antidepressants, accidental ( unintentional), initial encounter Assessment and Plan 36-year-old female admitted secondary to sertraline overdose Sertraline overdose Monitor for any seizure activity Monitor on telemetry for cardiac arrhythmias Monitor for any signs of progression to a comatose level This far she appears to be handling the overdose well Repeat liver enzymes tomorrow Psychiatry consult Hypertension Continue baseline treatment Follow blood pressures Adjust treatments as needed Diabetes mellitus type 2 Follow blood sugars Insulin sliding scale Diabetic diet Asthma Obstructive sleep apnea No exacerbation CPAP mask at night DVT prophylaxis SCDs Physician Certification 2 Midnight Certification Type: Admission for Inpatient Services Order for Inpatient Services The services are ordered in accordance with Medicare regulations or non- Medicare payer requirements, as applicable. In the case of services not specified as inpatient-only, they are appropriately provided as inpatient services in accordance with the 2-midnight benchmark. Estimated LOS (days): 2 days is the estimated time the patient will need to remain in the hospital, assuming treatment plan goals are met and no additional complications. Post-Hospital Plan: Home Ryan Gonzalez MD July 04, 2017 10:49
[2017-07-04] MEDS ORDERED: GLUCAGON 1 MG/ML VIAL OTHER PRN (11:00)
[2017-07-04] MEDS ORDERED: DEXTROSE 50% IN WATER 50 ML VIAL(D50) IV PUSH PRN (11:00)
[2017-07-04] MEDS ORDERED: ALBUTEROL SULFATE 90 MCG/ACT HFA 8 GM INHALER INH PRN ×2 (11:00)
[2017-07-04] MEDS: INSULIN NovoLIN REGULAR SUPPLEMENTAL SCALE SQ SCH ×3 (11:57→20:49)
[2017-07-04] MEDS: FLUTICASONE PROPIONATE 50 MCG/ACT 16 GM NASAL SPRAY NASAL SCH (20:47)
[2017-07-04] MEDS: CIPROFLOXACIN/HYDROCORTISONE OTIC 10 ML BTL LEFT EAR SCH (20:47)
[2017-07-05 04:00] VITALS: BP 120/80; PULSE 90; RESP 14; TEMP 99; O2SAT 95
[2017-07-05 06:54] LABS: CHLORIDE 109 MEQ/L (98-107); SODIUM (NA) 141 MEQ/L (136-145)
[2017-07-05 06:55] LABS: AUTOMATED NEUTROPHIL # 4.5 TH/MM3 (1.8-7.7); BASOPHIL % 0.4 % (0.0-2.0); EOSINOPHIL # 0.1 TH/MM3 (0-0.4); EOSINOPHIL % 0.9 % (0.0-4.0); HEMATOCRIT 39.1 % (35.0-46.0); HEMOGLOBIN 12.8 GM/DL (11.6-15.3); LYMPH % 36.6 % (9.0-44.0); LYMPHOCYTE # 2.8 TH/MM3 (1.0-4.8); MEAN CELL VOLUME 84.5 FL (80.0-100.0); MEAN CORPUSCULAR HEMOGLOBIN 27.7 PG (27.0-34.0); MEAN CORPUSCULAR HGB CONC 32.8 % (32.0-36.0); MEAN PLATELET VOLUME 8.1 FL (7.0-11.0); MONO % 5.3 % (0.0-8.0); MONOCYTE # 0.4 TH/MM3 (0-0.9); NEUT % 56.8 % (16.0-70.0); PLATELET COUNT 444 TH/MM3 (150-450); RED BLOOD COUNT 4.63 MIL/MM3 (4.00-5.30); RED CELL DISTRIBUTION WIDTH 14.8 % (11.6-17.2); WHITE BLOOD COUNT 7.8 TH/MM3 (4.0-11.0)
[2017-07-05 06:58] LABS: ALBUMIN 3.1 GM/DL (3.4-5.0); BICARBONATE 25.7 MEQ/L (21.0-32.0); CALCIUM 8.2 MG/DL (8.5-10.1); GLUCOSE,RANDOM 109 MG/DL (74-106)
[2017-07-05 06:59] LABS: BLOOD UREA NITROGEN 9 MG/DL (7-18)
[2017-07-05 07:01] LABS: ALT (GPT) 19 U/L (10-53); AST (GOT) 10 U/L (15-37)
[2017-07-05 07:02] LABS: CREATININE 0.66 MG/DL (0.50-1.00); GLOMERULAR FILTRATION RATE 124 ML/MIN (>89)
[2017-07-05 07:03] LABS: TOTAL BILIRUBIN ADULT 0.4 MG/DL (0.2-1.0); TOTAL PROTEIN 7.6 GM/DL (6.4-8.2)
[2017-07-05 07:04] LABS: ALKALINE PHOSPHATASE 86 U/L (45-117)
[2017-07-05 07:50] VITALS: BP 161/79
[2017-07-05] MEDS: INSULIN NovoLIN REGULAR SUPPLEMENTAL SCALE SQ SCH ×2 (07:59→12:00)
[2017-07-05] MEDS: FLUTICASONE PROPIONATE 50 MCG/ACT 16 GM NASAL SPRAY NASAL SCH (08:02)
[2017-07-05] MEDS: CIPROFLOXACIN/HYDROCORTISONE OTIC 10 ML BTL LEFT EAR SCH (08:03)
[2017-07-05 08:34] VITALS: BP 161/79; PULSE 75; RESP 20; TEMP 98.5; O2SAT 99
[2017-07-05] MEDS ORDERED: LISINOPRIL 20 MG TAB PO SCH (09:00)
[2017-07-05] MEDS ORDERED: HYDROCHLOROTHIAZIDE 25 MG TAB PO SCH (09:00)
[2017-07-05] MEDS ORDERED: LORATADINE 10 MG TAB PO SCH (09:00)
[2017-07-05] MEDS ORDERED: PANTOPRAZOLE SOD 20 MG DELAYED RELEASE TAB PO SCH (09:00)
--- NOTE | 2017-07-05 09:25 | HHI.DCPOC ---
Discharge Care Plan Diagnosis: (1) Overdose of antidepressant (2) Selective serotonin re-uptake inhibitor overdose Goals to Promote Your Health * To prevent worsening of your condition and complications * To maintain your health at the optimal level Directions to Meet Your Goals Take your medications as prescribed Follow your dietary instruction Follow activity as directed Keep your appointments as scheduled Take your immunizations and boosters as scheduled If your symptoms worsen call your PCP, if no PCP go to Urgent Care Center or Emergency Room Smoking is Dangerous to Your Health. Avoid second hand smoke Call the 24-hour hour crisis hotline for domestic abuse at Nelson Delacruz July 05, 2017 09:25
--- NOTE | 2017-07-05 10:31 | HHI.DS ---
Discharge Summary Admission Date July 04, 2017 at 10:38 Discharge Date: July 05, 2017 Admitting Diagnosis Sertraline overdose, hypertension (1) Overdose of antidepressant ICD Code: T43.201A - Poisoning by unspecified antidepressants, accidental ( unintentional), initial encounter Procedures None Brief History - From Admission Mrs. Chandler is a 36-year-old female. She was admitted after coming into the hospital with a dry mouth, nausea, and some vomiting. She reported that she took her leftover sertraline pills, although remain in the bottle. There is approximately 15 pills of 25 mg sertraline remaining in the bottle that she consumed. The reasoning for consuming this is related to a stressful day at work. 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 Once seen her nausea is improved. She has mild abdominal pain. She has not had any twitching , cramps, palpitations, or diarrhea. CBC/BMP: 07/05/17 0535 07/05/17 0535 Significant Findings Laboratory Tests Test 07/03/17 21:35 07/04/17 01:00 07/05/17 05:35 Platelet Count 490 TH/MM3 (150-450) Basophils (%) (Auto) 2.2 % (0.0-2.0) Random Glucose 148 MG/DL (74-106) 109 MG/DL (74-106) Total Protein 8.4 GM/DL (6.4-8.2) Aspartate Amino Transf (AST/SGOT) 13 U/L (15-37) 10 U/L (15-37) Salicylates Level LESS THAN 1.7 MG/DL Acetaminophen Level LESS THAN 2.0 MCG/ML Urine Squamous Epithelial Cells 6-8 /hpf (0-5) Urine Bacteria FEW /hpf (NONE) Albumin 3.1 GM/DL (3.4-5.0) Calcium Level 8.2 MG/DL (8.5-10.1) Chloride Level 109 MEQ/L (98-107) PE at Discharge GENERAL: Well-developed, morbidly obese with BMI 55.1, in no acute distress. alert and orientated HEENT: Head is normocephalic without any lesions or masses noted. Facial features are symmetric. Eyes: Extraocular muscles are intact. NECK: Supple without any masses. Trachea midline no deviation. No JVD, no bruits are appreciated CARDIAC: Regular rhythm, regular rate. S1/S2 are heard. No murmurs gallops or rubs. LUNGS: Clear to auscultation bilaterally. No wheeze, rhonchi or rales. No use of accessory muscles on inspiration or expiration. ABDOMEN: Soft, nontender. Nondistended. Bowel sounds heard in all 4 quadrants. No organomegaly or masses. Negative rebound, negative guarding EXTREMITIES: No edema, pulses are equal bilaterally. No cyanosis or clubbing NEUROLOGY: Mood and affect appear appropriate. Cranial nerves II through XII grossly intact. With the all extremities, speech is clear Hospital Course 36-year-old female who originally presented the hospital because of dry mouth, nausea and vomiting. It was indicated that she overused her medication Zoloft. Apparently she had a stressful day at work and she came home and took approximately 15 pills of 25 mg Zoloft. She was evaluated emergency department is recommended admission for further evaluation and management. Patient remained asymptomatic while she was here in the hospital. Patient was monitored on telemetry without any abnormality. Patient had evaluation by psychiatry who indicated that she is not a candidate for psychiatric admission. Psychiatry indicating the patient is psychologically stable for discharge and should continue taking Zoloft 50 mg daily as prescribed by her PCP. Patient was monitored for over 24 hours and she has been doing quite well without any signs or symptoms of SSRI poisoning. We will plan discharge home accordingly. Pt Condition on Discharge: Stable Discharge Disposition: Discharge Home Discharge Time: > 30 minutes Discharge Instructions DIET: Follow Instructions for: As Tolerated, No Restrictions Activities you can perform: Regular-No Restrictions Follow up Referrals: PCP Follow-up - 1 Week Continued Medications: Albuterol 6.7 GM Inh (Proventil Hfa 6.7 GM Inh) 90 Mcg/Act Aer 1 PUFF INH Q4H PRN for SHORTNESS OF BREATH, #1 INHALER 0 Refills Albuterol 8.5 GM Inh (Proair Hfa 8.5 GM Inh) 90 Mcg/Act Aer 1 PUFF INH Q4H PRN for SHORTNESS OF BREATH, #1 INHALER 0 Refills 108 mcg/actuation Hydrochlorothiazide (Hydrochlorothiazide) 25 Mg Tab 25 MG PO DAILY, #30 TAB 5 Refills Lisinopril (Lisinopril) 40 Mg Tab 40 MG PO DAILY for Blood Pressure Management, #30 TAB 5 Refills Omeprazole (Omeprazole) 20 Mg Tab 20 MG PO DAILY, #30 TAB 5 Refills Discontinued Medications: Ciprofloxacin-Dexamethasone Otic Drops (Ciprodex Otic Drops) 0.3-0.1% Susp 4 DROP LEFT EAR BID for Infection, #1 BOTTLE 0 Refills Fluticasone Nasal [place] (Flonase Nasal [place]) 50 Mcg/Act [place] 50 MCG EACH NARE BID for Allergies, #1 BOTTLE 3 Refills Loratadine-Pseudoephedrine 24 HR (Loratadine-D 24 HR) 10-240 Mg Tab 1 TAB PO DAILY for Allergy Management, #30 TAB 5 Refills Sertraline (Sertraline) 50 Mg Tab 50 MG PO DAILY, #30 TAB 5 Refills Nelson Delacruz July 05, 2017 10:31
--- NOTE | 2017-07-05 12:04 | PD.PSY.CON ---
Provisional Diagnosis Admission Date July 04, 2017 at 10:38 [place] I. Adjustment disorder with mixed anxiety and depressed mood, history of generalized anxiety disorder and depression [place] II. Deferred [place] III. Asthma, hypertension, diabetes [place] IV. Poor family support [place] V. 55 History of Present Illness Service Psychiatry Consult Requested By Medicine Reason for Consult Overdose Primary Care Physician Unknown HPI The patient is a 36-year-old -[place] woman, domiciled with a friend in [place], employed, single, with psychiatric history of depression, anxiety , no previous psychiatric hospitalizations, no prior suicidal attempts, she is on Zoloft 50 mg daily prescribed by PCP, she has medical history of diabetes, hypertension, asthma, she was admitted after coming into the hospital with a dry mouth, nausea, and some vomiting. She reported that she took her leftover sertraline pills, although remain in the bottle. There is approximately 15 pills of 25 mg sertraline remaining in the bottle that she consumed. The reasoning for consuming this is related to a stressful day at work. She denies suicidality but the consumption of sertraline may be commissary representative of some poor insight and decision-making deficit. Once seen her nausea is improved. She has mild abdominal pain. She has not had any twitching, cramps, palpitations, or diarrhea. Patient was consulted to psychiatry to address overdose. EMR was reviewed. The case was widely discussed with nurse in charge and also with primary medical team. On psychiatric evaluation I find a patient but is calm, cooperative and pleasant. Patient is also very childish and cheerful. She reports that after having an argument with a coworker she felt very overwhelmed and frustrated and she took the leftover of her anxiety medication, "maybe about 10-15 in a period of about 10 hours with the intention to calm down and go to sleep". Patient denies suicidal intentions in her overdose. The patient reports that she is mostly a happy person, she love life and she does not want to . At this moment she reports good mood, she reports good appetite, denies insomnia, denies worthlessness, denies hopelessness, denies helplessness, she denies suicidal and homicidal ideation, she denies visual and auditory hallucinations. The patient is fully oriented 3. Logical, coherent and relevant. He does have kind of concrete thought process. She denies the use of illegal drugs and alcohol. Review of Systems Constitutional: DENIES: Diaphoretic episodes, Fatigue, Fever, Weight gain, Weight loss, Chills, Dizziness, Change in appetite, Night Sweats Endocrine: DENIES: Abnorml menstrual pattern, Heat/cold intolerance, Polydipsia , Polyuria, Polyphagia Eyes: DENIES: Blurred vision, Diplopia, Eye inflammation, Eye pain, Vision loss , Photosensitivity, Double Vision Ears, nose, mouth, throat: DENIES: Tinnitus, Hearing loss, Vertigo, Nasal discharge, Oral lesions, Throat pain, Hoarseness, Ear Pain, Running Nose, Epistaxis, Sinus Pain, Toothache, Odynophagia Respiratory: DENIES: Apneas, Cough, Snoring, Wheezing, Hemoptysis, Sputum production, Shortness of breath Cardiovascular: DENIES: Chest pain, Palpitations, Syncope, Dyspnea on Exertion , PND, Lower Extremity Edema, Orthopnea, Claudication Gastrointestinal: DENIES: Abdominal pain, Black stools, Bloody stools, Constipation, Diarrhea, Nausea, Vomiting, Difficulty Swallowing, Anorexia Genitourinary: DENIES: Abnormal vaginal bleeding, Dysmenorrhea, Dyspareunia, Sexual dysfunction, Urinary frequency, Urinary incontinence, Urgency, Hematuria , Dysuria, Nocturia, Vaginal discharge Musculoskeletal: DENIES: Joint pain, Muscle aches, Stiffness, Joint Swelling, Back pain, Neck pain Integumentary: DENIES: Abnormal pigmentation, Pruritus, Rash, Nail changes, Breast masses, Breast skin changes, Nipple discharge Hematologic/lymphatic: DENIES: Bruising, Lymphadenopathy Immunologic/allergic: DENIES: Eczema, Urticaria Psychiatric: DENIES: Anxiety, Confusion, Mood changes, Depression, Hallucinations, Agitation, Suicidal Ideation, Homicidal Ideation, Delusions Past Family Social History Coded Allergies: grass pollen (Unverified Allergy, Unknown, 07/03/17) house dust (Unverified Allergy, Unknown, 07/03/17) Active Scripts Lisinopril (Lisinopril) 40 Mg Tab, 40 MG PO DAILY for Blood Pressure Management , #30 TAB 5 Refills Prov:Rosie Mathew MD 08/26/16 Hydrochlorothiazide (Hydrochlorothiazide) 25 Mg Tab, 25 MG PO DAILY, #30 TAB 5 Refills Prov:Rosie Mathew MD 08/16/16 Omeprazole (Omeprazole) 20 Mg Tab, 20 MG PO DAILY, #30 TAB 5 Refills Prov:Rosie Mathew MD 07/19/16 Reported Medications Albuterol 8.5 GM Inh (Proair Hfa 8.5 GM Inh) 90 Mcg/Act Aer, 1 PUFF INH Q4H Y for SHORTNESS OF BREATH, #1 INHALER 0 Refills 108 mcg/actuation 08/05/16 Albuterol 6.7 GM Inh (Proventil Hfa 6.7 GM Inh) 90 Mcg/Act Aer, 1 PUFF INH Q4H Y for SHORTNESS OF BREATH, #1 INHALER 0 Refills 08/05/16 Discontinued Scripts Ciprofloxacin-Dexamethasone Otic Drops (Ciprodex Otic Drops) 0.3-0.1% Susp, 4 DROP LEFT EAR BID for Infection, #1 BOTTLE 0 Refills Prov:Armaan England MD R3 03/17/17 Fluticasone Nasal [place] (Flonase Nasal [place]) 50 Mcg/Act [place], 50 MCG EACH NARE BID for Allergies, #1 BOTTLE 3 Refills Prov:Rosie Mathew MD 12/07/16 Loratadine-Pseudoephedrine 24 HR (Loratadine-D 24 HR) 10-240 Mg Tab, 1 TAB PO DAILY for Allergy Management, #30 TAB 5 Refills Prov:Rosie Mathew MD 08/16/16 Sertraline (Sertraline) 50 Mg Tab, 50 MG PO DAILY, #30 TAB 5 Refills Prov:Rosie Mathew MD 08/16/16 Current Medications Medications (Trade) Dose Ordered Sig/Jagdish Route Start Time Stop Time Status Last Admin (Tylenol) 500 mg Q6H PRN PO 07/04/17 09:00 07/04/17 09:42 (D50w (Vial) Inj) 50 ml UNSCH PRN IV PUSH 07/04/17 11:00 (Glucagon Inj) 1 mg UNSCH PRN OTHER 07/04/17 11:00 (NovoLIN R SUPPLEMENTAL SCALE) 1 ACHS SLIDING SCALE SQ 07/04/17 12:00 (Proair Hfa Inh) 1 puff Q4H PRN INH 07/04/17 11:00 (Hydrodiuril) 25 mg DAILY PO 07/05/17 09:00 07/05/17 08:00 (Cipro-Hc Otic Soln) 4 drop BID LEFT EAR 07/04/17 21:00 07/04/17 20:47 (Flonase Elmer Spr) 50 spray BID NASAL 07/04/17 21:00 07/05/17 08:02 (Prinivil) 40 mg DAILY PO 07/05/17 09:00 07/05/17 08:00 (Claritin) 10 mg DAILY PO 07/05/17 09:00 07/05/17 08:00 (Protonix) 20 mg DAILY PO 07/05/17 09:00 07/05/17 07:59 Family Psych History Patient denies family psychiatric history Social History Patient was born and raised in [facility], she lives in [place] with a roommate, she is single, employed, her highest level of education is high school Patient's Strengths (min. 2) No previous psychiatric hospitalizations, she is on treatment for anxiety and depression Physical Exam No tremors, no EPS, no withdrawal symptoms, no gait disturbances Vital Signs Vital Signs Date Time Temp Pulse Resp B/P (MAP) Pulse Ox O2 Delivery O2 Flow Rate FiO2 07/05/17 08:34 98.5 75 20 161/79 (106) 99 07/03/17 21:35 Room Air I/O 07/05/17 07/05/17 07/06/17 08:00 16:00 00:00 Intake Total 360 ml 120 ml Balance 360 ml 120 ml Lab Results Test 07/05/17 05:35 White Blood Count 7.8 TH/MM3 Red Blood Count 4.63 MIL/MM3 Hemoglobin 12.8 GM/DL Hematocrit 39.1 % Mean Corpuscular Volume 84.5 FL Mean Corpuscular Hemoglobin 27.7 PG Mean Corpuscular Hemoglobin Concent 32.8 % Red Cell Distribution Width 14.8 % Platelet Count 444 TH/MM3 Mean Platelet Volume 8.1 FL Neutrophils (%) (Auto) 56.8 % Lymphocytes (%) (Auto) 36.6 % Monocytes (%) (Auto) 5.3 % Eosinophils (%) (Auto) 0.9 % Basophils (%) (Auto) 0.4 % Neutrophils # (Auto) 4.5 TH/MM3 Lymphocytes # (Auto) 2.8 TH/MM3 Monocytes # (Auto) 0.4 TH/MM3 Eosinophils # (Auto) 0.1 TH/MM3 Basophils # (Auto) 0.0 TH/MM3 CBC Comment DIFF FINAL Differential Comment Blood Urea Nitrogen 9 MG/DL Creatinine 0.66 MG/DL Random Glucose 109 MG/DL Total Protein 7.6 GM/DL Albumin 3.1 GM/DL Calcium Level 8.2 MG/DL Alkaline Phosphatase 86 U/L Aspartate Amino Transf (AST/SGOT) 10 U/L Alanine Aminotransferase (ALT/SGPT) 19 U/L Total Bilirubin 0.4 MG/DL Sodium Level 141 MEQ/L Potassium Level 4.2 MEQ/L Chloride Level 109 MEQ/L Carbon Dioxide Level 25.7 MEQ/L Anion Gap 6 MEQ/L Estimat Glomerular Filtration Rate 124 ML/MIN Mental Status Examination Appearance: Appropriate Consciousness: Alert Orientation: x4 Motor Activity: Normal gait Speech: Unremarkable Language: Adequate Fund of Knowledge: Adequate Attention and Concentration: Adequate Memory: Unremarkable Mood: Appropriate Affect: Appropriate Thought Process & Associations: Intact Thought Content: Appropriate Hallucination Type: None Delusion Type: None Suicidal Ideation: No Suicidal Plan: No Suicidal Intention: No Homicidal Ideation: No Homicidal Plan: No Homicidal Intention: No Insight: Adequate Judgment: Adequate Assessment & Plan Problem List: (1) Adjustment disorder with mixed anxiety and depressed mood ICD Codes: F43.23 - Adjustment disorder with mixed anxiety and depressed mood Assessment & Plan: On psychiatric evaluation today I find a patient that is calm, cooperative and pleasant. She is even cheerful and childish. The patient reports good mood, she denies symptoms of depression, she denies anhedonia, she denies hopelessness, denies helplessness, worthlessness, she denies difficulty sleeping, low appetite, low energy, she denies suicidal and homicidal ideation, she denies visual and auditory hallucinations. The patient denies present or past symptoms of serge, psychosis. The patient is mostly logical, coherent and relevant, she does have a prominence concrete kind of thinking which might suggest an underlying undiagnosed borderline intellectual dysfunction. Her recent overdose with medication did not have a suicidal intention, and seems to be the result of poor coping skills and poor impulse control most probably secondary to character structure and not to a primary psychiatric condition decompensation. The patient does not meet criteria for involuntary psychiatric admission at this moment. Extensive psychoeducation, support and motivation provided. The patient was widely advised about the importance of using medication as prescribed and not overusing it. Educated about side effects. She should continue her Zoloft 50 mg daily as prescribed by PCP. Consult appreciated Assessment & Plan Estimated LOS: days Jace Dumont MD July 05, 2017 12:04
[2017-07-05 12:37] VITALS: BP 127/79; PULSE 92; RESP 19; TEMP 98.4; O2SAT 97
== END 2017-07-05 15:00 | disposition home or self-care (01) | DRG 918 ==
LOC: PHED 21:09 → PHEDA 23:28 → PH3A 07-04 00:56 → OBSVTOIN 07-04 10:38
PROVIDERS: ADMIT Hospitalist; ATTEND Hospitalist
DX: T43.221A Poisoning by selective serotonin reuptake inhibitors, accidental (unintentional), initial encounter (principal); Z68.43 Body mass index [BMI] 50.0-59.9, adult; I10 Essential (primary) hypertension; E66.01 Morbid (severe) obesity due to excess calories; E11.9 Type 2 diabetes mellitus without complications; F43.23 Adjustment disorder with mixed anxiety and depressed mood; G47.33 Obstructive sleep apnea (adult) (pediatric); J45.909 Unspecified asthma, uncomplicated; Z79.899 Other long term (current) drug therapy
CPT/HCPCS: 80053; 80307; 81001; 82948; 84702; 85025; 93005; J0360; J2060

== ENCOUNTER → 2017-08-02 | Outpatient (CLI) | payer OTHER ==
[~2017-08-02] MED LIST changes: -CIPR0.3S LEFT EAR; -FLUT1SPR5 EACH NARE; -LORA24TA PO; -SERT-132 PO
[2017-08-02 10:57] LABS: AUTOMATED NEUTROPHIL # 3.2 TH/MM3 (1.8-7.7); BASOPHIL % 0.8 % (0.0-2.0); EOSINOPHIL # 0.1 TH/MM3 (0-0.4); EOSINOPHIL % 1.1 % (0.0-4.0); HEMATOCRIT 37.8 % (35.0-46.0); HEMOGLOBIN 12.2 GM/DL (11.6-15.3); LYMPH % 35.8 % (9.0-44.0); LYMPHOCYTE # 2.1 TH/MM3 (1.0-4.8); MEAN CELL VOLUME 85.1 FL (80.0-100.0); MEAN CORPUSCULAR HEMOGLOBIN 27.5 PG (27.0-34.0); MEAN CORPUSCULAR HGB CONC 32.3 % (32.0-36.0); MEAN PLATELET VOLUME 7.3 FL (7.0-11.0); MONO % 6.8 % (0.0-8.0); MONOCYTE # 0.4 TH/MM3 (0-0.9); NEUT % 55.5 % (16.0-70.0); PLATELET COUNT 386 TH/MM3 (150-450); RED BLOOD COUNT 4.44 MIL/MM3 (4.00-5.30); RED CELL DISTRIBUTION WIDTH 14.8 % (11.6-17.2); WHITE BLOOD COUNT 5.8 TH/MM3 (4.0-11.0)
[2017-08-02 11:10] LABS: ALKALINE PHOSPHATASE 98 U/L (45-117); HDL CHOLESTEROL 46.7 MG/DL (40.0-60.0); TOTAL BILIRUBIN ADULT 0.2 MG/DL (0.2-1.0); TRIGLYCERIDES 54 MG/DL (42-150)
[2017-08-02 11:15] LABS: ALBUMIN 3.3 GM/DL (3.4-5.0); ALT (GPT) 27 U/L (10-53); AST (GOT) 23 U/L (15-37); BICARBONATE 24.3 MEQ/L (21.0-32.0); BLOOD UREA NITROGEN 8 MG/DL (7-18); CALCIUM 8.4 MG/DL (8.5-10.1); CHLORIDE 107 MEQ/L (98-107); CHOLESTEROL 142 MG/DL (120-200); CHOLESTEROL/ HDL RATIO 3.04 RATIO; CREATININE 0.71 MG/DL (0.50-1.00); GLOMERULAR FILTRATION RATE 113 ML/MIN (>89); GLUCOSE,FASTING 120 MG/DL (74-99); LDL CHOLESTEROL 85 MG/DL (0-99); SODIUM (NA) 140 MEQ/L (136-145)
[2017-08-02 16:54] LABS: HEMOGLOBIN A1C 6.4 % (4.3-6.0)
== END ==
LOC: CLAB 10:02
PROVIDERS: ATTEND Family Medicine
DX: I10 Essential (primary) hypertension (principal); N92.0 Excessive and frequent menstruation with regular cycle; Z68.39 Body mass index [BMI] 39.0-39.9, adult
CPT/HCPCS: 36415; 80053; 80061; 83036; 85025